=== PATIENT | female | born 2000 | race African-American/Black ===

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

== ENCOUNTER 2025-04-20 04:12 | Emergency (ER) | payer MEDICAID ==
[~2025-04-20] VITALS: Ht 157.5 cm; Wt 75.0 kg
[2025-04-20 04:21] VITALS: TEMP 36.7; O2SAT 100
[2025-04-20 04:41] VITALS: O2SAT 99
[2025-04-20 04:58] VITALS: BP 116/81; PULSE 120; RESP 12
[2025-04-20] MEDS: IBUPROFEN 600MG TABLET PO STA (04:58)
[2025-04-20] MEDS: PREDNISONE 20MG TABLET PO ONE (04:58)
[2025-04-20] MEDS: ONDANSETRON 4MG ODT PO STA (04:59)
[2025-04-20] MEDS: SODIUM CHLORIDE 0.9% 1,000 ML IV ONE (05:37)
[2025-04-20 05:50] LABS: HCG SCREEN NEGATIVE
[2025-04-20 05:52] LABS: BASOPHILS % 0.7 % (0.0-2.0); CREATININE 1.2 mg/dL (0.6-1.0); EOSINOPHILS % 0.8 % (0.0-5.0); HEMATOCRIT. 39.4 % (36.0-48.0); HEMOGLOBIN. 13.1 g/dL (12.0-16.0); LYMPHOCYTES % 22.9 % (20.0-50.0); MEAN PLATELET VOLUME 7.5 fl (7.4-10.4); MONOCYTES % 7.4 % (2.0-8.0); NEUTROPHILS % 68.2 % (40.0-76.0); PLATELET 357 x1000/uL (130-400); RED BLOOD CELL COUNT 4.38 mill/uL (4.2-5.4); RED CELL DISTRIBUTION WIDTH 14.7 % (11.6-14.6); TROPONIN I HIGH SENSITIVITY < 4 ng/L (3.0-34); UREA NITROGEN BLOOD 14 mg/dL (9-23)
== END 2025-04-20 06:10 | disposition home or self-care (01) ==
LOC: ER 04:12 → EDBEDREQ 04:38 → ER 06:10 → ENRESERV 06:17 → CANBEDREQ 06:27
DX: R07.89 Other chest pain (principal); R00.0 Tachycardia, unspecified
CPT/HCPCS: 99285; 71045; 80048; 84703; 85025; 85379; 84484; 36415; 93005; Q0162; J7512; J7030